=== PATIENT | male | born 1990 | race Two or more races ===

== ENCOUNTER → 2017-03-16 | Emergency (ER) | payer MEDICAID ==
[~2017-03-16] VITALS: Ht 175.3 cm; Wt 90.7 kg
[~2017-03-16] MED LIST: IBUPROFEN600 MG ORAL; Ketorolac 30mg Inj IM ONE; Methocarbamol 750mg tab ORAL ONE; ROBAXIN-750750 MG PO
[2017-03-16 18:01] VITALS: BP 145/81
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
== END | disposition home or self-care (01) ==
LOC: EMR 18:33
DX: M54.2 Cervicalgia (principal); M54.9 Dorsalgia, unspecified; T14.8 Other injury of unspecified body region; V43.52XA Car driver injured in collision with other type car in traffic accident, initial encounter; Y93.9 Activity, unspecified; Y92.410 Unspecified street and highway as the place of occurrence of the external cause
CPT/HCPCS: 96372; 99284; J1885